=== PATIENT | female | born 1965 | race Caucasian/White ===

== ENCOUNTER 2020-04-07 23:46 | Emergency (ER) | payer BC ==
--- NOTE | 2020-04-08 01:29 | ER ---
Nurse's Notes [facility] Name: Shakira Munoz Age: 54 yrs Sex: Female : 1965 Arrival Date: 04/07/2020 Time: 23:47 Bed 7 Private MD: Diagnosis: Fall on same level from slipping, tripping and stumbling;Contusion of unspecified part of head Presentation: 04/07 23:55 Chief complaint: EMS states: her found her on ground after a fall. she was mg2 conscious, denies LOC. she had whiskey, vodka and 2 bottle of beers tonight. her brother 3 months ago. C-collar applied to the patient in ED. patient has hematoma at the back of her head. Care prior to arrival: None. Mechanism of Injury: Fall. Trauma event details: Injury occurred in the [facility], Injury occurred: at home. Injury occurred: April 07, 2020. 23:55 Acuity: DINAH 3 mg2 23:55 Method Of Arrival: [place] [facility] [place]:07 Coronavirus screen: Proceed with normal triage. Patient denies a cough. Patient denies mg2 shortness of breath or difficulty breathing. Patient denies measured and/or subjective temperature greater than 100.4F prior to today's visit. Patient denies travel on a cruise ship or to a country the [facility] currently lists as an affected area. Patient denies contact with known and/or suspected case of COVID-19. Ebola Screen: No symptoms or risks identified at this time. Initial Sepsis Screen: Does the patient meet any 2 criteria? No. Patient's initial sepsis screen is negative. Does the patient have a suspected source of infection? No. Patient's initial sepsis screen is negative. Risk Assessment: Do you want to hurt yourself or someone else? Patient reports no desire to harm self or others. Onset of symptoms was April 08, 2020. 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 Trauma Activation: Alert Physician: ED Physician; Name: ; Notified At: ; Arrived At: Physician: General Surgeon; Name: ; Notified At: ; Arrived At: Physician: Radiology; Name: ; Notified At: ; Arrived At: Physician: Respiratory; Name: ; Notified At: ; Arrived At: Physician: Lab; Name: ; Notified At: ; Arrived At: Historical: - Allergies: 00:01 No Known Allergies; mg2 - Home Meds: 00:35 alprazolam 1 mg Oral Tb24 1 tab once daily [Active]; estradiol 2 mg 1 tab OD [Active]; mg2 lisinopril 20 mg Oral tab [Active]; clonidine HCl 0.1 mg Oral tab 1 tab once daily [Active]; metoprolol tartrate 100 mg Oral tab 1 tab 2 times per day [Active]; Synthroid 75 mcg Oral tab 1 tab once daily [Active]; sertraline 100 mg oral tab 1 tab once daily [Active]; amlodipine 5 mg tab 1 tab once daily [Active]; - PMHx: 00:01 Hypertension; mg2 - Immunization history: Last tetanus immunization: unknown. - Social history:: Smoking status: Patient denies any tobacco usage or history of. Screenin:03 Abuse screen: Denies threats or abuse. Denies injuries from another. Nutritional mg2 screening: No deficits noted. Tuberculosis screening: No symptoms or risk factors identified. 00:07 Fall Risk Fall in past 12 months (25 points). IV access (20 points). mg2 Primary Survey: 00:01 NO uncontrolled hemorrhage observed. A: The patient is alert. Airway: patent. mg2 Breathing/Chest: Respiratory pattern: regular, Respiratory effort: spontaneous, Breath sounds: clear, bilaterally. in mediastinum, right upper lobe, left upper lobe, right middle lobe, left lower lobe and right lower lobe Chest inspection: symmetrical rise and fall of the chest. Circulation: Skin color: pink. Disability Alert. Exposure/Environment: All clothing and personal items were removed. Forensic evidence collection is not deemed to be indicated at this time. Items placed in patient belonging bag. There is no evidence of uncontrolled external bleeding. Obvious injury(ies) are noted at this time: swelling at the back of the head A warming method has been applied: A warm blanket has been provided to the patient. 00:36 Reassessment Airway Airway Breathing/Chest Respiratory pattern Regular Respiratory mg2 effort Spontaneous Unlabored Breath sounds Clear Circulation Heart rhythm Sinus rhythm Color [place] Disability Alert. Secondary Survey: 00:03 HEENT: Head Other swelling in the parietal area. mg2 00:35 Gastrointestinal: No deficits noted. : No deficits noted. Musculoskeletal: mg2 Circulation, motion, and sensation intact. Capillary refill < 3 seconds. Assessment: 04/07 23:59 General: Appears in no apparent distress. comfortable, Behavior is crying. Pain: mg2 Complains of pain in back of the head Pain does not radiate. Quality of pain is described as aching, Pain began suddenly. Neuro: Level of Consciousness is awake, alert, obeys commands, Oriented to person, place, situation. EENT: No signs and/or symptoms were reported regarding the EENT system. Cardiovascular: Capillary refill < 3 seconds Patient's skin is warm and dry. Respiratory: Airway is patent Respiratory effort is even, unlabored, Respiratory pattern is regular, symmetrical. GI: No signs and/or symptoms were reported involving the gastrointestinal system. :. Derm: Skin is intact, is healthy with good turgor, Skin is pink, warm \T\ dry. normal. Musculoskeletal: Circulation, motion, and sensation intact. Capillary refill < 3 seconds, Swelling present in parietal area. 04/08 00:10 Reassessment: Pt taken to CT. ea 00:32 Reassessment: Patient and/or family updated on plan of care and expected duration. Pain ea level reassessed. Patient is alert, oriented x 3, equal unlabored respirations, skin warm/dry/pink. Returned from CT. 01:31 Reassessment: Patient and/or family updated on plan of care and expected duration. Pain ea level reassessed. Patient is alert, oriented x 3, equal unlabored respirations, skin warm/dry/pink. Discharge instruction given to patient and , verbalized the understanding of instruction. Pt left ED ambulatory accompanied by family. Vital Signs: 00:06 BP 126 / 87; Pulse 82; Resp 18; Temp 98.2; Pulse Ox 100% on R/A; Weight 90.72 kg; mg2 Height 5 ft. 4 in. (162.56 cm); 01:15 BP 134 / 88; Pulse 80; Resp 18; Pulse Ox 100% ; ea 00:06 Body Mass Index 34.33 (90.72 kg, 162.56 cm) mg2 Sandra Coma Score: 00:06 Eye Response: spontaneous(4). Verbal Response: oriented(5). Motor Response: obeys mg2 commands(6). Total: 15. 01:15 Eye Response: spontaneous(4). Verbal Response: oriented(5). Motor Response: obeys ea commands(6). Total: 15. Trauma Score (Adult): 00:06 Eye Response: spontaneous(1); Verbal Response: oriented(1); Motor Response: obeys mg2 commands(2); Systolic BP: > 89 mm Hg(4); Respiratory Rate: 10 to 29 per min(4); Sandra Score: 15; Trauma Score: 12 ED Course: 04/07 23:47 Patient arrived in ED. cf2 23:48 Kory Yi PA is PHCP. cp 23:48 Los Giraldo MD is Attending Physician. cp 23:55 Kamron Rosales, MANUELITO is Primary Nurse. mg2 23:55 Inserted saline lock: 20 gauge in left antecubital area, using aseptic technique. Blood ds4 collected. 23:58 Triage completed. mg2 04/08 00:00 Arm band placed on right wrist. Patient placed in an exam room, on a stretcher, on ea pulse oximetry. 00:07 Patient has correct armband on for positive identification. monitor worker on. Pulse mg2 ox on. NIBP on. Door closed. Warm blanket given. 00:07 Ice pack to injury. mg2 00:08 Patient maintains SpO2 saturation greater than 95% on room air. Thermoregulation: warm mg2 blanket given to patient. 00:36 No provider procedures requiring assistance completed. mg2 00:41 CT Head C Spine In Process Unspecified. EDMS 01:30 IV discontinued, intact, bleeding controlled, No redness/swelling at site. Pressure ea dressing applied. Administered Medications: No medications were administered Intake: 00:06 PO: 0ml; Total: 0ml. mg2 Outcome: :28 Discharge ordered by MD. cp 01:32 Discharged to home ambulatory, with family. ea 01:32 Condition: stable 01:32 Discharge instructions given to patient, family, Instructed on discharge instructions, follow up and referral plans. Demonstrated understanding of instructions, follow-up care. 01:33 Patient's length of stay was not longer than 2 hours. ea 01:33 Patient left the ED. ea Signatures: Dispatcher [employer] EDMS Chris Sow ds4 Kory Yi PA PA cp Antunez, Elena, RN RN ea [place]ose, Michele, RN RN mg2 Bruce Jenkins cf2 Corrections: (The following items were deleted from the chart) 00:36 00:03 HEENT: Head mg2 mg2
--- NOTE | 2020-04-08 01:29 | EDPHYS ---
Physician Documentation [facility] Name: Shakira Munoz Age: 54 yrs Sex: Female : 1965 Arrival Date: 04/07/2020 Time: 23:47 Bed 7 Private MD: ED Physician Los Giraldo HPI: 04/08 00:25 This 54 yrs old Female presents to ER via EMS with complaints of Fall Injury. cp 00:25 Details of fall: The patient fell from an upright position. Onset: The symptoms/episode cp began/occurred just prior to arrival. Associated injuries: The patient sustained injury to the head, contusion, swelling, tenderness. Severity of symptoms: in the emergency department the symptoms are unchanged, despite EMS interventions. 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 - Social history:: Smoking status: Patient denies any tobacco usage or history of. ROS: 00:25 Constitutional: Negative for body aches, chills, fever. cp 00:25 Cardiovascular: Negative for chest pain. 00:25 Respiratory: Negative for cough, shortness of breath, wheezing. 00:25 Abdomen/GI: Negative for abdominal pain, nausea, vomiting, and diarrhea. 00:25 Neuro: Positive for headache, Negative for altered mental status, syncope, weakness. 00:25 All other systems are negative. Exam: 00:26 Constitutional: The patient appears in no acute distress, alert, awake, cp non-diaphoretic, non-toxic, well developed, well nourished. 00:26 Head/face: Noted is contusion, that is superficial, of the left occipital area and right occipital area, swelling, that is mild, of the left occipital area and right occipital area, tenderness, that is mild, of the left occipital area and right occipital area. 00:26 Eyes: Periorbital structures: appear normal, Pupils: equal, round, and reactive to light and accomodation, Extraocular movements: intact throughout, Conjunctiva: normal, no exudate, no injection, Lids and lashes: appear normal, bilaterally. 00:26 ENT: External ear(s): are unremarkable, Nose: is normal, Mouth: Lips: moist, Oral mucosa: pink and intact, moist, Posterior pharynx: is normal, airway is patent, no erythema, no exudate. 00:26 Neck: C-spine: C-collar placed in ED. 00:26 Chest/axilla: Inspection: normal, Palpation: is normal, no crepitus, no tenderness. 00:26 Cardiovascular: Rate: normal, Rhythm: regular. 00:26 Respiratory: the patient does not display signs of respiratory distress, Respirations: normal, no use of accessory muscles, labored breathing, is not present. 00:26 Abdomen/GI: Inspection: abdomen appears normal, Palpation: abdomen is soft and non-tender, in all quadrants. 00:26 Back: pain, is absent, vertebral tenderness, is not appreciated. 00:26 Neuro: Orientation: to person, place \T\ time. Mentation: able to follow commands, Motor: moves all fours, strength is normal. Vital Signs: 00:06 BP 126 / 87; Pulse 82; Resp 18; Temp 98.2; Pulse Ox 100% on R/A; Weight 90.72 kg; mg2 Height 5 ft. 4 in. (162.56 cm); 01:15 BP 134 / 88; Pulse 80; Resp 18; Pulse Ox 100% ; ea 00:06 Body Mass Index 34.33 (90.72 kg, 162.56 cm) mg2 [place] Coma Score: 00:06 Eye Response: spontaneous(4). Verbal Response: oriented(5). Motor Response: obeys mg2 commands(6). Total: 15. 01:15 Eye Response: spontaneous(4). Verbal Response: oriented(5). Motor Response: obeys ea commands(6). Total: 15. Trauma Score (Adult): 00:06 Eye Response: spontaneous(1); Verbal Response: oriented(1); Motor Response: obeys mg2 commands(2); Systolic BP: > 89 mm Hg(4); Respiratory Rate: 10 to 29 per min(4); [place] Score: 15; Trauma Score: 12 MDM: 04/07 23:51 Patient medically screened. cp 04/08 00:28 Differential diagnosis: closed head injury, contusion, fracture, laceration, multiple cp trauma. 01:25 Data reviewed: vital signs, nurses notes, radiologic studies, CT scan, and as a result, cp I will discharge patient. 01:25 Counseling: I had a detailed discussion with the patient and/or guardian regarding: the cp historical points, exam findings, and any diagnostic results supporting the discharge/admit diagnosis, radiology results, to return to the emergency department if symptoms worsen or persist or if there are any questions or concerns that arise at home. 01:25 Response to treatment: the patient's symptoms have markedly improved after treatment. cp Special discussion: Based on the patient's history, exam and DX evaluation, there is no indication for emergent intervention or inpatient [place]. It is understood by the patient/guardian that if the SXs persist or worsen they need to return immediately for re-evaluation. 04/07 23:52 Order name: CT Head C Spine cp Administered Medications: No medications were administered Disposition: 01:35 Chart complete. cp 02:29 Co-signature as Attending Physician, Los Giraldo MD. ma2 Disposition: 04/08/20 01:28 Discharged to Home. Impression: Fall on same level from slipping, tripping and stumbling, Contusion of unspecified part of head. - Condition is Stable. - Discharge Instructions: Facial or Scalp Contusion, Head Injury, Adult. - Medication Reconciliation Form, Thank You Letter, Antibiotic Education, Prescription Opioid Use form. - Follow up: Private Physician; When: 1 - 2 days; Reason: Worsening of condition. - Problem is new. - Symptoms have improved. Signatures: Dispatcher [employer] EDMS Kory Yi PA PA cp Antunez, Elena, RN RN ea Alzahri, Mohammad, MD MD ma2 Kamron Rosales RN RN mg2 Corrections: (The following items were deleted from the chart) 01:00 04/07 23:53 C Spine Wo Con+CT.RAD.BRZ ordered. EDMS EDMS 04/08 01:33 01:28 04/08/2020 01:28 Discharged to Home. Impression: Fall on same level from ea slipping, tripping and stumbling; Contusion of unspecified part of head. Condition is Stable. Forms are Medication Reconciliation Form, Thank You Letter, Antibiotic Education, Prescription Opioid Use. Follow up: Private Physician; When: 1 - 2 days; Reason: Worsening of condition. Problem is new. Symptoms have improved. cp
[2020-04-08 01:45] VITALS: BP 126/87; TEMP 98.2; O2SAT 100
--- NOTE | 2020-04-08 11:08 | RAD REPORT ---
EXAM DESCRIPTION: CT - Head C Spine Mpr Wo Con - 04/08/2020 3:24 am CLINICAL HISTORY: 54 years Female fall COMPARISON: None. TECHNIQUE: Contiguous axial CT images obtained through the brain without IV contrast. This exam was performed according to our department optimization program which includes automated exp osure control, adjustment of the mA and/or kv according to patient size and/or use of iterative recon struction technique. FINDINGS: The ventricles and sulci are mildly prominent. Minimal microvascular ischemic changes. No mass lesions. No acute hemorrhage. Atherosclerotic calcifications. Large left parietal scalp hematoma. No fluid or significant mucosal thickening in the visualized paranasal sinuses. No depressed calvarial fractures. IMPRESSION: No acute intracranial abnormality is identified. There is a left parietal scalp hemato ma. EXAM DESCRIPTION: Head C Spine Mpr Wo Con CLINICAL HISTORY: 54 years Female fall COMPARISON: None. TECHNIQUE: Contiguous axial images obtained through the cervical spine without IV contrast. Coronal and sagittal reformatted images obtained. This exam was performed according to our department optimization program which includes automated exp osure control, adjustment of the mA and/or kv according to patient size and/or use of iterative recon struction technique. FINDINGS: Straightening of the normal lordosis. Vertebral body alignment is unremarkable. No acute fractures. Mild degenerative changes. No significant spinal or foraminal stenosis. Mild atherosclerotic calcifications. IMPRESSION: No acute cervical spinal fracture is identified. Electronically signed by: Chuck Luther MD 04/08/2020 12:50 AM CDT Due to temporary technical issues with the PACS/Fluency reporting system, reports are being signed by the in house radiologist without review as a courtesy to ensure prompt reporting. The interpreting r adiologist is fully responsible for the content of the report.
== END 2020-04-08 01:33 | disposition home or self-care (01) ==
LOC: ER 23:46
DX: S00.93XA Contusion of unspecified part of head, initial encounter (principal); W01.0XXA Fall on same level from slipping, tripping and stumbling without subsequent striking against object, initial encounter; Y93.9 Activity, unspecified; Y92.9 Unspecified place or not applicable; I10 Essential (primary) hypertension
CPT/HCPCS: 70450; 72125; 99285

== ENCOUNTER 2022-03-16 13:19 | Emergency (ER) | payer BC ==
--- OUTSIDE RECORDS SUMMARY | 2022-03-16 13:21 | XMS REPORT | Continuity of Care Document ---
:1965 Author Organization [facility] t Address [address] [place] [address] [address] [place] [address] Care Team Providers Name Role Phone Radiology Attending Clinician Unavailable RADIOLOGY Attending Clinician Unavailable Doctor Unassigned, Name Attending Clinician Unavailable Payers Payer Name Policy Type Policy Number Effective Date Expiration Date S ource Problems This patient has no known problems. Allergies, Adverse Reactions, Alerts Allergy Allergy Status Severity Reaction(s) Onset Inactive Treating Comm ents Source Name Type Date Date Clinician NO KNOWN Drug Active Univers ALLERGIE Class ity of [facility] Social History Social Habit Start Date Stop Date Quantity Comments Source Sex Assigned At Uni versity [facility] Smoking Status Start Date Stop Date Source Unknown if ever smoked [facility]it y [facility] Medications This patient has no known medications. Procedures Procedure Date / Time Performed Performing Clinician Sour e ASSIGNMENT OF BENEFITS 2020-10-24 16:38:57 Doctor Unaconstantin, No [facility] Encounters Start End Encounter Admission Attending Care Care Encounter Source Date/Time Date/Time Type Type Clinicians Facility Department ID 2020-10-24 2020-10-24 Hospital Radiology [facility] [id number] Univers 10:20:00 23:59:00 Encounter Lizbet [id number] ity [facility] [id number] [facility] [id number] [facility] [address] 2020-10-24 2020-10-24 Outpatient R RADIOLOGY [facility] [id number] Univers 00:00:00 00:00:00 ity [facility] 2020-10-24 2020-10-24 Orders Doctor ELLIS [id number] Univers 00:00:00 00:00:00 Only Unassigned, GRANT [id number] [facility] [id number] Sy as [id number] [facility] [address] Results This patient has no known results.
[2022-03-16] MEDS ORDERED: ONDANSETRON 4 MG/2 ML VIAL ONE (14:29)
[2022-03-16] MEDS ORDERED: MORPHINE 4 MG/ML SYR ONE ×2 (14:29→17:19)
[2022-03-16 14:36] LABS: Absolute Lymphocytes (CBC) 1.8 K/uL (0.7-4.9); Hematocrit 38.6 % (36.0-45.0); Lymphocytes % 25.5 % (15.3-44.8); RBC Red Blood Cell Count 4.24 M/uL (3.86-4.86)
[2022-03-16 14:41] LABS: Protime INR 0.98
[2022-03-16 14:55] LABS: Albumin 3.7 g/dL (3.4-5.0); Bilirubin Direct 0.1 mg/dL (0-0.2); Bilirubin Total 0.4 mg/dL (0.2-1.0); Magnesium 1.8 mg/dL (1.8-2.4); Protein, Total 7.1 g/dL (6.4-8.2); Troponin High Sensitivity 5.3 pg/mL (<58.9)
--- NOTE | 2022-03-16 15:24 | RAD REPORT ---
EXAM DESCRIPTION: RAD - Chest Single View - 03/16/2022 3:18 pm CLINICAL HISTORY: CHEST PAIN Chest pain. COMPARISON: Chest Pa And Lat (2 Views) dated 03/14/2020; Chest Single View dated 10/14/2017; ABDOMEN 1 V IEW KUB dated 06/09/2014 FINDINGS: Portable technique limits examination quality. The lungs are grossly clear. The heart is normal in size. No displaced fractures. IMPRESSION: No acute intrathoracic process suspected.
--- NOTE | 2022-03-16 17:00 | EDPHYS ---
Physician Documentation [facility] Name: Shakira Munoz Age: 56 yrs Sex: Female : 1965 Arrival Date: 03/16/2022 Time: 13:21 Bed 16 Private MD: ED Physician Kory Rojo HPI: 03/16 13:38 This 56 yrs old Female presents to ER via Ambulatory with complaints of Chest Pain, jmm Back Pain, Shortness Of Breath, Rash, High Blood Pressure. 13:38 The patient or guardian reports chest pain that is located primarily in the substernal [facility] area. Onset: gradually, 3 day(s) ago. The pain radiates to right back. Associated signs and symptoms: Pertinent positives: shortness of breath. The chest pain is described as aching, a pressure. Duration: The patient or guardian reports a single episode, that is still ongoing. Modifying factors: The symptoms are alleviated by nothing. the symptoms are aggravated by nothing. This is a 56 year old female with a history of htn that presents to the ED with complaints of right sided chest pain beginning apprx 3 days ago. Also complains of sob. Denies fever. . Historical: - Allergies: 13:58 No Known Allergies; ph - PMHx: 13:58 Hypertension; ph - PSHx: 13:58 hysterectomy; ph - Immunization history:: Adult Immunizations up to date. - Social history:: Smoking status: Patient reports the use of cigarette tobacco products, smokes one-half pack cigarettes per day. ROS: 13:38 Constitutional: Negative for fever, chills, and weight loss. jmm 13:38 Cardiovascular: Positive for chest pain. 13:38 Respiratory: Positive for shortness of breath. 13:38 All other systems are negative. Exam: 13:38 Constitutional: This is a well developed, well nourished patient who is awake, alert, jmm and in no acute distress. Head/Face: atraumatic. Eyes: EOMI, no conjunctival erythema appreciated ENT: Moist Mucus Membranes Neck: Trachea midline, Supple Cardiovascular: Regular rate and rhythm. No edema appreciated 13:38 Abdomen/GI: Non distended, soft Back: Normal ROM Skin: General appearance color normal MS/ Extremity: Moves all extremities, no obvious deformities appreciated, no edema noted to the lower extremities Neuro: Awake and alert Psych: Behavior is normal, Mood is normal, Patient is cooperative and pleasant 13:38 Chest/axilla: vesicular rash noted to the right side of the chest. Vital Signs: 13:54 BP 175 / 109; Pulse 83; Resp 18; Temp 97.8; Pulse Ox 100% on R/A; Weight 93.89 kg; ph Height 5 ft. 4 in. (162.56 cm); 14:30 BP 145 / 90; Pulse 80; Resp 17; Pulse Ox 100% ; Pain 7/10; jh6 16:00 BP 138 / 86; Pulse 86; Resp 17; Pulse Ox 100% ; Pain 5/10; jh6 17:10 BP 136 / 80; Pulse 83; Resp 17; Temp 97.8(O); Pulse Ox 100% ; Pain 2/10; jh6 13:54 Body Mass Index 35.53 (93.89 kg, 162.56 cm) ph MDM: 13:38 Patient medically screened. [facility] 16:55 Data reviewed: vital signs, nurses notes. Counseling: I had a detailed discussion with jovan the patient and/or guardian regarding: the historical points, exam findings, and any diagnostic results supporting the discharge/admit diagnosis, lab results, radiology results, the need for outpatient follow up, to return to the emergency department if symptoms worsen or persist or if there are any questions or concerns that arise at home. ED course: Patient is alert and non toxic in appearance in the ED. PE findings consistent with herpes zoster. Labs and imaging and cxr wnl. Patient advised to follow up with pcp and otherwise given strict return precautions. patient understood and agrees with the plan of care . 03/16 14:01 Order name: Basic Metabolic Panel; Complete Time: 14:56 [facility] 03/16 14:01 Order name: CBC with Diff; Complete Time: 14:44 [facility] 03/16 14:01 Order name: LFT's; Complete Time: 14:56 [facility] 03/16 14:01 Order name: Magnesium; Complete Time: 14:56 [facility] 03/16 14:01 Order name: NT PRO-BNP; Complete Time: 14:56 [facility] 03/16 14:01 Order name: PT-INR; Complete Time: 14:54 [facility] 03/16 14:01 Order name: Troponin HS; Complete Time: 14:56 [facility] 03/16 14:01 Order name: XRAY Chest (1 view); Complete Time: 15:28 [facility] 03/16 14:02 Order name: SARS-COV-2 RT PCR (Document "Date of Onset" if Symptomatic); Complete Time: [facility] 16:50 03/16 14:41 Order name: D-Dimer; Complete Time: 14:54 [facility] 03/16 14:01 Order name: EKG; Complete Time: 14:01 [facility] 03/16 14:01 Order name: Cardiac monitoring [facility] 03/16 14:01 Order name: EKG - Nurse/Tech; Complete Time: 14:42 [facility] 03/16 14:01 Order name: IV Saline Lock; Complete Time: 14:42 [facility] 03/16 14:01 Order name: Labs collected and sent; Complete Time: 14:42 [facility] 03/16 14:01 Order name: O2 Per Protocol; Complete Time: 14:41 [facility] 03/16 14:01 Order name: O2 Sat Monitoring; Complete Time: 14:41 [facility] Administered Medications: 14:30 Drug: morphine 4 mg Route: IVP; Infused Over: 4 mins; Site: left forearm; [facility] 14:30 Drug: Zofran (Ondansetron) 4 mg Route: IVP; Site: left forearm; [facility] 17:14 Drug: morphine 4 mg Route: IM; Site: left deltoid; [facility] Disposition Summary: 03/16/22 16:59 Discharge Ordered Location: Home [facility] Condition: Stable [facility] Diagnosis - Chest pain, unspecified [facility] - Herpes Zoster [facility] Followup: [facility] - With: Private Physician - When: 2 - 3 days - Reason: Recheck today's complaints, Continuance of care, Re-evaluation by your physician Discharge Instructions: - Discharge Summary Sheet [facility] - Nonspecific Chest Pain, Adult [facility] - Shingles [facility] Forms: - Medication Reconciliation Form [facility] - Thank You Letter [facility] - Antibiotic Education [facility] - Prescription Opioid Use [facility] Prescriptions: - Valtrex 1 gram Oral tablet - take 1 tablet by ORAL route 3 times per day for 7 days; 21 tablet; Refills: 0, [facility] Product Selection Permitted - gabapentin 300 mg Oral capsule - take 1 capsule by ORAL route 2 times per day; 20 capsule; Refills: 0, Product [facility] Selection Permitted - Tylenol-Codeine #3 300 mg-30 mg Oral - take 1 tablet by ORAL route every 4-6 hours; 12 tablet; Refills: 0, Product jmjacques Selection Permitted Signatures: Dispatcher [employer] Kory Mcdaniel MD MD cha Mickail, Joel, PA PA jmm Hall, Patricia, MANUELITO RN Bryanna Salguero RN RN jh6 Corrections: (The following items were deleted from the chart) 14:41 14:10 D-DIMER+COAG.LAB.BRZ ordered. EDMS EDMS
--- NOTE | 2022-03-16 17:00 | ER ---
Nurse's Notes [facility] Name: Shakira Munoz Age: 56 yrs Sex: Female : 1965 Arrival Date: 03/16/2022 Time: 13:21 Bed 16 Private MD: Diagnosis: Chest pain, unspecified;Herpes Zoster Presentation: 03/16 13:54 Chief complaint: Patient states: R sided chest pain x 4 days, also c/o R sided back ph pain and swelling/rash in R axilla. Coronavirus screen: Vaccine status: Patient reports receiving the 2nd dose of the covid vaccine. Ebola Screen: No symptoms or risks identified at this time. Initial Sepsis Screen: Does the patient meet any 2 criteria? No. Patient's initial sepsis screen is negative. Does the patient have a suspected source of infection? No. Patient's initial sepsis screen is negative. Risk Assessment: Do you want to hurt yourself or someone else? Patient reports no desire to harm self or others. Onset of symptoms was March 16, 2022. 13:54 Method Of Arrival: Ambulatory ph 13:54 Acuity: DINAH 3 ph Triage Assessment: 13:59 General: Appears in no apparent distress. uncomfortable, Behavior is cooperative, ph appropriate for age, anxious. Pain: Complains of pain in anterior aspect of right upper chest Pain radiates to back and right lateral anterior chest. Cardiovascular: Reports chest pain. Derm: Rash noted that is on right axilla. Historical: - Allergies: 13:58 No Known Allergies; ph - PMHx: 13:58 Hypertension; ph - PSHx: 13:58 hysterectomy; ph - Immunization history:: Adult Immunizations up to date. - Social history:: Smoking status: Patient reports the use of cigarette tobacco products, smokes one-half pack cigarettes per day. Screenin:30 Abuse screen: Denies threats or abuse. jh6 14:30 Nutritional screening: No deficits noted. Tuberculosis screening: No symptoms or risk jh6 factors identified. Fall Risk None identified. Assessment: 14:20 Pain: Complains of pain in right lateral posterior chest and right lateral anterior jh6 chest Pain currently is 7 out of 10 on a pain scale. Quality of pain is described as sharp, shooting, squeezing, Pain began 2-3 days ago. Is intermittent. 14:20 General: Appears in no apparent distress. Behavior is calm, cooperative, pain to rt jh6 chest with rash to rt axial line x 4 days. Vital Signs: 13:54 BP 175 / 109; Pulse 83; Resp 18; Temp 97.8; Pulse Ox 100% on R/A; Weight 93.89 kg; ph Height 5 ft. 4 in. (162.56 cm); 14:30 BP 145 / 90; Pulse 80; Resp 17; Pulse Ox 100% ; Pain 7/10; jh6 16:00 BP 138 / 86; Pulse 86; Resp 17; Pulse Ox 100% ; Pain 5/10; jh6 17:10 BP 136 / 80; Pulse 83; Resp 17; Temp 97.8(O); Pulse Ox 100% ; Pain 2/10; jh6 13:54 Body Mass Index 35.53 (93.89 kg, 162.56 cm) ph ED Course: 13:21 Patient arrived in ED. rg4 13:27 Josr Kumar PA is PHCP. [facility] 13:27 Kory Rojo MD is Attending Physician. [facility] 13:56 Bryanna Salguero, MANUELITO is Primary Nurse. jh6 13:56 Triage completed. ph 13:59 Arm band placed on Patient placed in an exam room, on a stretcher, on gamma ray operator, ph on pulse oximetry. 14:20 Bed in low position. Call light in reach. Side rails up X 1. 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 Pulse ox on. NIBP on. jh6 14:23 Inserted saline lock: 20 gauge in left forearm, using aseptic technique. Blood jh6 collected. 15:19 XRAY Chest (1 view) In Process Unspecified. EDMS Administered Medications: 14:30 Drug: morphine 4 mg Route: IVP; Infused Over: 4 mins; Site: left forearm; jh6 14:30 Drug: Zofran (Ondansetron) 4 mg Route: IVP; Site: left forearm; jh6 17:14 Drug: morphine 4 mg Route: IM; Site: left deltoid; jh6 Outcome: 16:59 Discharge ordered by . jovan 17:29 Discharged to home ambulatory. jh6 17:29 Condition: good 17:29 Discharge instructions given to patient, Instructed on discharge instructions, Demonstrated understanding of instructions, follow-up care, medications, Prescriptions given X 3. 17:31 Patient left the ED. jh6 Signatures: Dispatcher [employer] EDMS Josr Kumar PA PA jmm Hall, Patricia RN RN Jennifer Dudley4 Bryanna Salguero RN RN jh6
[2022-03-16 17:39] VITALS: TEMP 97.8; O2SAT 100
[2022-03-16 17:49] VITALS: BP 136/80
--- NOTE | 2022-03-17 13:21 | EKG ---
Test Date: 2022-03-16 Test Time: 14:32:11 Computing Consultant: RENATE MEASUREMENT RESULTS: Intervals: Rate: 73 MO: 130 QRSD: 90 QT: 424 QTc: 467 [place]: P: 55 MO: 130 QRS: 41 T: 16 INTERPRETIVE STATEMENTS: Normal sinus rhythm RSR' or QR pattern in V1 suggests right ventricular conduction delay Borderline ECG Compared to ECG 10/14/2017 10:46:28 RSR' in V1 or V2 now present Electronically Signed On 03-17-22 13:19:20 CDT by Murtaza Gonzales
== END 2022-03-16 17:31 | disposition home or self-care (01) ==
LOC: ER 13:19
DX: R07.9 Chest pain, unspecified (principal); B02.9 Zoster without complications; F17.210 Nicotine dependence, cigarettes, uncomplicated; Z20.822 Contact with and (suspected) exposure to COVID-19
CPT/HCPCS: 93005; 85025; 80048; 36415; 83735; 85610; 85379; 80076; 84484; 83880; 71045; 96375; 96372; 96374; 99284; U0003; J2405